=== PATIENT | female | born 1990 | race Caucasian/White ===

== ENCOUNTER 2017-02-26 23:25 | Emergency (ER) | payer OTHER ==
[2017-02-27 01:59] LABS: HEMOGLOBIN 12.3 gm/dl (12.3-15.3); RED BLOOD COUNT 4.23 M/UL (4.00-5.10); WHITE BLOOD COUNT 7.9 K/UL (4.5-11.0)
[2017-02-27 02:19] LABS: BUN/CREATININE RATIO 17 (0-10)
== END 2017-02-27 02:59 | disposition home or self-care (01) ==
LOC: ER1 23:25
PROVIDERS: Family Medicine
DX: R00.1 Bradycardia, unspecified (principal); J32.9 Chronic sinusitis, unspecified
CPT/HCPCS: 36415; 80053; 85025; 93005; 99284

== ENCOUNTER 2021-08-27 20:48 | Emergency (ER) | payer OTHER ==
[~2021-08-27 20:48] MED LIST: PROTONIX40 MG PO
[2021-08-27 22:11] LABS: HEMOGLOBIN 12.3 gm/dl (12.3-15.3); RED BLOOD COUNT 4.32 M/UL (4.00-5.10); WHITE BLOOD COUNT 10.4 K/UL (4.5-11.0)
[2021-08-27 22:36] LABS: BUN/CREATININE RATIO 15 (0-10)
[2021-08-28] MEDS ORDERED: MACROBID 100 M100 M1 PO (00:14)
[2021-08-28] MEDS ORDERED: PYRIDIUM200 MG PO (00:14)
== END 2021-08-28 00:35 | disposition home or self-care (01) ==
LOC: ER1 20:48
PROVIDERS: Physician Assistant
DX: N30.90 Cystitis, unspecified without hematuria (principal); K21.9 Gastro-esophageal reflux disease without esophagitis; I10 Essential (primary) hypertension
CPT/HCPCS: 80053; 81001; 82150; 83690; 84703; 85025; 87086; 99284; Q9967

== ENCOUNTER 2022-02-12 17:51 | Emergency (ER) | payer OTHER ==
[~2022-02-12 17:51] MED LIST changes: +MACROBID 100 M100 M1 PO; +PYRIDIUM200 MG PO
[2022-02-12] MEDS ORDERED: ENDOCET 5-3251 EACH PO (18:27)
== END 2022-02-12 18:31 | disposition home or self-care (01) ==
LOC: ER1 17:51
DX: K00.6 Disturbances in tooth eruption (principal)
CPT/HCPCS: 64400; 99282